=== PATIENT | male | born 1960 | race Caucasian/White ===

== ENCOUNTER 2022-03-05 21:19 | Emergency (ER) | payer OTHER ==
[~2022-03-05] VITALS: Ht 177.8 cm; Wt 107.5 kg
[2022-03-05] MEDS ORDERED: CHOLESTYRAMINE P4 GM PO (22:29)
== END 2022-03-05 22:53 | disposition home or self-care (01) ==
LOC: ED 21:19
DX: K52.9 Noninfective gastroenteritis and colitis, unspecified (principal)
CPT/HCPCS: 36415; 74018; 80053; 81001; 83690; 85025; 99284-25; J7030